=== PATIENT | male | born 1990 | race Caucasian/White ===

== ENCOUNTER 2017-09-26 03:32 | Emergency (ER) | payer MEDICAID, OTHER | END 2017-09-26 04:52 | disposition home or self-care (01) | LOC: FTE 03:32 | DX: J02.9 Acute pharyngitis, unspecified (principal) | CPT/HCPCS: 99283; Z7502 ==

== ENCOUNTER 2018-02-05 23:56 | Emergency (ER) | payer MEDICAID ==
[2018-02-06] MEDS: KETOROLAC 30 MG INJ IM (01:04)
[2018-02-06 01:10] LABS: URINE PH (Dip) POC 6.5 (5.0-8.5)
[2018-02-06 01:10] LABS: URINE BLOOD (Dip) POC Negative (NEGATIVE); URINE GLUCOSE (Dip) POC Negative (NEGATIVE); URINE KETONES (Dip) POC Negative (NEGATIVE); URINE LEUKOCYTE EST (Dip) POC Negative (NEGATIVE); URINE NITRITE (Dip) POC Negative (NEGATIVE); URINE TOTAL PROTEIN POC Negative (NEGATIVE)
== END 2018-02-06 01:28 | disposition home or self-care (01) ==
LOC: E/R 23:56
DX: M54.5 Low back pain (principal)
CPT/HCPCS: 81003; 96372; 99284-25